=== PATIENT | male | born 1980 | race Caucasian/White ===

== ENCOUNTER 2025-05-21 13:50 | Outpatient (OUT) | payer OTHER, SELFPAY ==
--- NOTE | 2025-05-21 13:54 | MR_ITS ---
[place] [id number] Patient Name: RUI GALVIN MRN: [id number] date: 1980 Sex: M Assigned Patient Location: MRI Current Patient Location: MRI Accession/Order Number: [id number] Exam Date: 05/21/2025 14:00 Report Date: 05/21/2025 17:50 At the request of: LESLIE ROBLEDO Procedure: MR knee LT wo con MR knee LT wo con 05/21/2025 3:50 PM SIGNS AND SYMPTOMS: Effusion, Left Knee Pain PROTOCOL: Multiplanar multisequence MR images of the left knee without IV contrast COMPARISON: None. FINDINGS: Fluid: There is a complex Gaspar's cyst posteriorly measuring 10.0 x 0.6 x 3.3 cm. Medial compartment: Medial meniscus: There is a horizontally oriented nondisplaced tear of the posterior horn and body of the medial meniscus. No displaced fragments. There is accompanying edema extending anterior to the medial weightbearing joint space along the subcutaneous soft tissues. Medial collateral ligament: Intact. Medial femoral condyle cartilage: Preserved. Medial tibial plateau cartilage: Preserved. Lateral compartment: Lateral meniscus: Intact. Displaced fragment. Lateral collateral ligament: Intact. Lateral femoral condyle cartilage: Preserved. Lateral tibial plateau cartilage: Preserved. Posterolateral corner: Popliteus tendon: Intact. Popliteofibular ligament: Intact. Proximal tibiofibular joint: Preserved. Anterior compartment: Alignment: Normal. Quadriceps tendon: Intact. Patellar tendon: Intact. Retinaculum: Medial intact. Lateral intact. Patellar cartilage: Preserved. Osteophytosis. Trochlea: Preserved.. Plica: None Hoffa fat pad: Normal Intercondylar compartment: Anterior cruciate ligament: Intact. Posterior cruciate ligament: Intact. Bones (other than subarticular marrow): Normal. Muscles: Normal. Vessels: Normal. Nerves: Normal. MR/MR knee LT wo con IMPRESSION: There is a horizontally oriented nondisplaced tear of the posterior horn and body of the medial meniscus. No displaced fragments. There is accompanying edema extending anterior to the medial weightbearing joint space along the subcutaneous soft tissues. There is a complex Gaspar's cyst posteriorly measuring 10.0 x 0.6 x 3.3 cm. Impression dictated by: Jeff Lee M.D. 05/21/2025 5:50 PM Dictation Location: [place] [id number] Electronically authenticated by: [id number] Y Date: 05/21/2025 17:50
== END 2025-05-21 13:51 | disposition home or self-care (01) ==
LOC: MRI 13:50
PROVIDERS: PCP Family Medicine; Visit Provider Family Medicine
DX: M25.562 Pain in left knee (principal); M25.462 Effusion, left knee; M71.22 Synovial cyst of popliteal space [Baker], left knee
CPT/HCPCS: 73721